=== PATIENT | female | born 1975 | race Caucasian/White ===

== ENCOUNTER 2021-01-22 18:24 | Emergency (ER) | payer BC, OTHER ==
[~2021-01-22] VITALS: Ht 167.6 cm; Wt 65.0 kg
[~2021-01-22 18:24] MED LIST: OXYC1TAB14 PO
--- NOTE | 2021-01-22 18:27 | NUR ---
Pt brought in by JESSICA from home with chief complaint of witnessed new sz. Pt arrived alert & oriented, complaints of nausea and mild ceballos. [employer] pt administered 4 mg zofran, 250ml ns, & oral glucose.
[2021-01-22] MEDS ORDERED: LORazepam 2 MG/ML, 1ML IVPush ONE (19:00)
[2021-01-22] MEDS ORDERED: LORazepam 2 MG/ML, 1ML ONE (19:07)
[2021-01-22 19:30] LABS: ALBUMIN 3.7 g/dL (3.4-5.0); ANION GAP 7 mmol/L (5-15); CALCIUM 8.8 mg/dL (8.5-10.1); CHLORIDE 111 mmol/L (98-107); CREATININE 0.96 mg/dL (0.55-1.02)
[2021-01-22 19:36] LABS: BASOPHILS % (AUTO) 0 % (0-1); EOSINOPHILS % (AUTO) 1 % (1-7); LYMPHOCYTES % (AUTO) 13 % (22-44); MEAN CORPUSCULAR HEMOGLOBIN 31.1 pg (27.0-34.8); MEAN CORPUSCULAR HGB CONC 34.1 g/dL (32.4-35.8); MEAN PLATELET VOLUME 7.9 fL (7.4-10.4); MONOCYTES % (AUTO) 5 % (2-9); NEUTROPHILS % (AUTO) 81 % (42-75); PLATELET COUNT 300 x10^3/uL (130-400); RED BLOOD COUNT 4.73 x10^6/uL (3.82-5.3); RED CELL DISTRIBUTION WIDTH 12.6 % (9.6-15.2)
--- NOTE | 2021-01-22 19:42 | NUR ---
steady ambulation with standby assist to bathroom
[2021-01-22 20:08] VITALS: BP 108/64
[2021-01-22 20:16] LABS: MD SCAN
[2021-01-22 20:26] LABS: AMPHETAMINE SCREEN, URINE Negative (Negative); BARBITURATE SCREEN, URINE Negative (Negative); BENZODIAZEPINE SCREEN, URINE Negative (Negative); CANNABINOID SCREEN, URINE Negative (Negative); COCAINE SCREEN, URINE Negative (Negative); METHADONE SCREEN, URINE Negative (Negative); OPIATE SCREEN, URINE Negative (Negative)
--- NOTE | 2021-01-22 20:26 | NUR ---
ERMD at bedside to discuss POC
--- NOTE | 2021-01-22 20:39 | NUR ---
dc instructions reviewed
== END 2021-01-22 20:46 | disposition home or self-care (01) ==
LOC: ED 18:43
DX: R56.9 Unspecified convulsions (principal); R51.9 Headache, unspecified; R00.0 Tachycardia, unspecified; R53.1 Weakness
CPT/HCPCS: 36415; 70450; 80048; 80307; 82040; 85025; 93005; 96374; 99285; J2060